=== PATIENT | female | born 1975 | race Caucasian/White ===

== ENCOUNTER 2017-10-11 23:14 | Inpatient (IN) | payer SELFPAY ==
[2017-10-12 00:36] LABS: HCG,QUALITATIVE URINE NEGATIVE (NEGATIVE); SQUAMOUS EPITHIAL 4 /hpf (0-5); URINE BACTERIA OCC (<OCC); URINE BILIRUBIN NEGATIVE (NEGATIVE); URINE CLARITY Hazy (Clear); URINE COLOR Yellow (YELLOW); URINE GLUCOSE (UA) NORMAL (Normal); URINE LEUKOCYTE ESTERASE TRACE Leu/uL (Negative); URINE PROTEIN NEGATIVE (NEGATIVE); URINE UROBILINOGEN NORMAL mg/dL (0.2-1.0)
[2017-10-12 00:38] LABS: URINE BLOOD 1+ (NEGATIVE)
[2017-10-12] MEDS ORDERED: Sodium Chloride 0.9% 1,000 ML IV ONE (00:43)
--- NOTE | 2017-10-12 00:43 | C.PDOC ---
History Of Present Illness 42 year old female presents to the ED c/o RLQ abdominal pain associated with some nausea. Patient describes her pain as shapr, stabbing 5/10 pain. Patient denies fever, chills, vomit, diarrhea. Time Seen by Provider: 10/12/17 00:41 Chief Complaint (Nursing): Abdominal Pain History Per: Patient History/Exam Limitations: no limitations Onset/Duration Of Symptoms: Hrs Current Symptoms Are (Timing): Still Present Severity: Severe Pain Scale Rating Of: 6 Location Of Pain/Discomfort: RUQ Radiation Of Pain To:: None Quality Of Discomfort: Sharp, Stabbing Associated Symptoms: Nausea. denies: Vomiting, Diarrhea, Loss Of Appetite, Urinary Symptoms Exacerbating Factors: None Alleviating Factors: None Last Bowel Movement: Today Recent travel outside of the [place]: No Additional History Per: Patient Abnormal Vaginal Bleeding: No Past Medical History Reviewed: Historical Data, Nursing Documentation, Vital Signs Vital Signs: Last Vital Signs Temp 98.3 F 10/12/17 01:21 Pulse 67 10/12/17 01:21 Resp 12 10/12/17 01:21 BP 115/74 10/12/17 01:21 Pulse Ox 100 10/12/17 01:35 - Medical History PMH: No Chronic Diseases Surgical History: No Surg Hx Family History: States: Unknown Family Hx - Social History Hx Tobacco Use: No Hx Alcohol Use: No Hx Substance Use: No - Immunization History Hx Tetanus Toxoid Vaccination: No Hx Influenza Vaccination: Yes Hx Pneumococcal Vaccination: No Review Of Systems Constitutional: Negative for: Fever, Chills ENT: Negative for: Throat Pain Cardiovascular: Negative for: Chest Pain, Palpitations Respiratory: Negative for: Cough, Shortness of Breath Gastrointestinal: Positive for: Nausea, Abdominal Pain. Negative for: Vomiting , Diarrhea Genitourinary: Negative for: Dysuria Musculoskeletal: Negative for: Back Pain Skin: Negative for: Rash Neurological: Negative for: Weakness, Numbness Psych: Positive for: Anxiety Physical Exam - Physical Exam Appears: Non-toxic, In Acute Distress Skin: Warm, Dry Head: Normacephalic Eye(s): bilateral: Normal Inspection Oral Mucosa: Moist Neck: Supple Chest: Symmetrical Cardiovascular: Rhythm Regular Respiratory: No Rales, No Rhonchi, No Wheezing Gastrointestinal/Abdominal: Soft, Tenderness (RLQ), No Distention, Guarding ( voluntary), Rebound (mild) Back: Normal Inspection Extremity: No Tenderness, No Swelling Extremity: Bilateral: Atraumatic, Normal Color And Temperature, Normal ROM Neurological/Psych: Oriented x3, Normal Speech Gait: Steady ED Course And Treatment - Laboratory Results Result Diagrams: 10/12/17 01:02 10/12/17 01:02 O2 Sat by Pulse Oximetry: 100 (ON RA) Pulse Ox Interpretation: Normal Progress Note: Plan: - CT abd/pelvis. - Labs. - Morphine 2 mg IVP. - IV fluids. - Zosyn IVPB. - Toradol 30 mg IVP. - Zofran 4 mg IVP. - UA Disposition Discussed With Dr.: Reuben Rose Comment: accepted the pt on her service and took over the care at 4:34 AM Doctor Will See Patient In The: ED Counseled Patient/Family Regarding: Studies Performed, Diagnosis - Disposition Disposition: HOSPITALIZED Disposition Time: 00:43 Condition: FAIR Forms: [facility] (Thai) - POA Present On Arrival: Poor Glycemic Control - Clinical Impression Clinical Impression: Abdominal pain, Acute appendicitis - Scribe Statement The provider has reviewed the documentation as recorded by the Scribe Aleks Melo All medical record entries made by the Scribe were at my direction and personally dictated by me. I have reviewed the chart and agree that the record accurately reflects my personal performance of the history, physical exam, medical decision making, and the department course for this patient. I have also personally directed, reviewed, and agree with the discharge instructions and disposition. Decision To Admit - Pt Status Changed To: Hospital Disposition Of: Inpatient - Admit Certification Admit to Inpatient:: After my assessment, the patient will require hospitalization for at least two midnights. This is because of the severity of symptoms shown, intensity of services needed, and/or the medical risk in this patient being treated as an outpatient. - InPatient: Physician Admission Certification:: After my assessment, the patient will require hospitalization for at least two midnights. This is because of the severity of symptoms shown, intensity of services needed, and/or the medical risk in this patient being treated as an outpatient. - . Bed Request Type: Regular Admitting Physician: Reuben Rose Patient Diagnosis: Abdominal pain, Acute appendicitis
[2017-10-12] MEDS ORDERED: Sodium Chloride 0.9% 1,000 ML ONE (01:00)
[2017-10-12 01:05] LABS: BASO # 0.1 K/uL (0.0-0.2); BASO % 0.7 % (0.0-2.0); EOS % 0.3 % (0.0-4.0); HEMOGLOBIN 13.7 g/dL (11.0-16.0); LYMPH # 1.4 K/uL (1.0-4.3); LYMPH % 9.5 % (20.0-40.0); MEAN CELL VOLUME 89.4 fL (81.0-99.0); MEAN CORPUSCULAR HEMOGLOBIN 30.6 pg (27.0-31.0); MEAN CORPUSCULAR HGB CONC 34.2 g/dL (33.0-37.0); MEAN PLATELET VOLUME 8.4 fL (7.2-11.7); MONO # 0.6 K/uL (0.0-0.8); MONO % 3.8 % (0.0-10.0); NEUT # 12.6 K/uL (1.8-7.0); NEUT % 85.7 % (50.0-75.0); PLATELET COUNT 265 K/uL (130-400); RED CELL DISTRIBUTION WIDTH 12.6 % (11.5-14.5); WHITE BLOOD COUNT 14.7 K/uL (4.8-10.8)
[2017-10-12] MEDS ORDERED: Iodixanol 320 MG/ML 100 ML BOTTLE IV ONE (01:09)
[2017-10-12 01:11] LABS: PROTHROMBIN TIME 11.3 SECONDS (9.7-12.2)
[2017-10-12] MEDS ORDERED: Piperacillin/Tazobact 3.375 gm 100 ML IVPB STA (01:13)
[2017-10-12 01:16] LABS: ALB/GLOB RATIO 1.4 (1.0-2.1); ALBUMIN 4.8 g/dL (3.5-5.0); ALT/SGPT 47 U/L (9-52); AST/SGOT 25 U/L (14-36); BLOOD UREA NITROGEN 12 mg/dL (7-17); CALCIUM 9.4 mg/dl (8.6-10.4); GFR AFRICAN-AMERICAN > 60; GFR NON-AFRICAN AMERICAN > 60; LIPASE 86 U/L (23-300)
[2017-10-12 01:58] LABS: LYMPHOCYTE 10 % (20-40); MONOCYTE 3 % (0-10); NEUTROPHIL 87 % (50-75); PLATELET ESTIMATE NORMAL (NORMAL); TOTAL CELLS COUNTED 100
[2017-10-12] MEDS ORDERED: Piperacillin/Tazobact 3.375 gm 100 ML IVPB ONE (02:47)
[2017-10-12] MEDS ORDERED: Morphine 4 MG/ML VIAL IVP PRN (04:56)
--- NOTE | 2017-10-12 05:07 | CP.PCM.HP ---
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 Patient states pain began yesterday around 4PM. She describes pain first began along epigastrium and periumbilical region. Patient states as time went on the pain began to localize to the right lower quadrant. She denies headache/dizziness, chest pain, SOB, nausea/vomiting/diarrhea, dysuria. Patient is currently on her menstrual period. PMH: as stated above PSurgHx: denies All: NKDA Fam Hx: non-contributory Review of Systems - Review of Systems Review of Systems: 12pt ROS reviewed, unremarkable, except as stated in HPI Past Patient History - Past Social History Smoking Status: Never Smoked - PSYCHIATRIC Hx Substance Use: No Meds Allergies/Adverse Reactions: Allergies Allergy/AdvReac Type Severity Reaction Status Date / Time No Known Allergies Allergy Unverified 05/16/13 23:34 Physical Exam - Constitutional Appears: No Acute Distress - Head Exam Head Exam: NORMOCEPHALIC - Eye Exam Eye Exam: EOMI, Normal appearance - ENT Exam ENT Exam: Mucous Membranes Moist - Respiratory Exam Respiratory Exam: NORMAL BREATHING PATTERN - Cardiovascular Exam Cardiovascular Exam: +S1, +S2 - GI/Abdominal Exam GI & Abdominal Exam: Rebound, Soft, Tenderness. absent: Distended, Firm, Guarding, Rigid Additional comments: +McBurney's +Obturator test +RLQ tenderness - Neurological Exam Neurological exam: Alert, Oriented x3 - Psychiatric Exam Psychiatric exam: Normal Mood - Skin Skin Exam: Dry, Intact, Warm Results - Vital Signs Recent Vital Signs: Last Vital Signs Temp 98.6 F 10/12/17 05:02 Pulse 73 10/12/17 05:02 Resp 18 10/12/17 05:02 BP 97/62 L 10/12/17 05:02 Pulse Ox 99 10/12/17 05:02 - Labs Result Diagrams: 10/12/17 01:02 10/12/17 01:02 Labs: Laboratory Results - last 24 hr 10/12/17 10/12/17 10/12/17 00:18 01:02 01:02 WBC 14.7 H RBC 4.50 Hgb 13.7 Hct 40.2 MCV 89.4 MCH 30.6 MCHC 34.2 RDW 12.6 Plt Count 265 MPV 8.4 Neut % (Auto) 85.7 H Lymph % (Auto) 9.5 L [place] % (Auto) 3.8 Eos % (Auto) 0.3 Baso % (Auto) 0.7 Neut # (Auto) 12.6 H Lymph # (Auto) 1.4 [place] # (Auto) 0.6 Eos # (Auto) 0.0 Baso # (Auto) 0.1 Neutrophils % (Manual) 87 H Lymphocytes % (Manual) 10 L Monocytes % (Manual) 3 Platelet Estimate Normal PT 11.3 INR 1.0 APTT 33 Sodium Potassium Chloride Carbon Dioxide Anion Gap BUN Creatinine Est GFR ( Amer) Est GFR (Non-Af Amer) Random Glucose Calcium Total Bilirubin AST ALT Alkaline Phosphatase Total Protein Albumin Globulin Albumin/Globulin Ratio Lipase Urine Color Yellow Urine Clarity Hazy Urine pH 6.0 Ur Specific [place] 1.023 Urine Protein Negative Urine Glucose (UA) Normal Urine Ketones Negative Urine Blood 1+ H Urine Nitrate Negative Urine Bilirubin Negative Urine Urobilinogen Normal Ur Leukocyte Esterase Trace Urine WBC (Auto) 8 H Urine RBC (Auto) 7 H Ur Squamous Epith Cells 4 Urine Bacteria Occ H Urine HCG, Qual Negative 10/12/17 01:02 WBC RBC Hgb Hct MCV MCH MCHC RDW Plt Count MPV Neut % (Auto) Lymph % (Auto) [place] % (Auto) Eos % (Auto) Baso % (Auto) Neut # (Auto) Lymph # (Auto) [place] # (Auto) Eos # (Auto) Baso # (Auto) Neutrophils % (Manual) Lymphocytes % (Manual) Monocytes % (Manual) Platelet Estimate PT INR APTT Sodium 142 Potassium 4.4 Chloride 105 Carbon Dioxide 26 Anion Gap 15 BUN 12 Creatinine 0.7 Est GFR ( Amer) > 60 Est GFR (Non-Af Amer) > 60 Random Glucose 118 H Calcium 9.4 Total Bilirubin 0.4 AST 25 ALT 47 Alkaline Phosphatase 63 Total Protein 8.3 Albumin 4.8 Globulin 3.5 Albumin/Globulin Ratio 1.4 Lipase 86 Urine Color Urine Clarity Urine pH Ur Specific [place] Urine Protein Urine Glucose (UA) Urine Ketones Urine Blood Urine Nitrate Urine Bilirubin Urine Urobilinogen Ur Leukocyte Esterase Urine WBC (Auto) Urine RBC (Auto) Ur Squamous Epith Cells Urine Bacteria Urine HCG, Qual - Imaging and Cardiology CT scan - abdomen Status: Image reviewed by me Assessment & Plan - Assessment and Plan (Free Text) Assessment: 42F with acute appendicitis Plan: For OR in AM for laparoscopic appendectomy possible open Consent in chart NPO IVF ABx Analgesics prn Anti-emetics prn SCDs Further recs per Dr. Milton Magallanes PGY3
[2017-10-12] MEDS ORDERED: Lactated Ringer's 1,000 ML ONE (05:17)
[2017-10-12] MEDS: Lactated Ringer's 1,000 ML IV SCH ×2 (05:21→14:50)
[2017-10-12] MEDS: Piperacillin/Tazobact 3.375 GM in Sodium Chloride 100 ML IVPB SCH ×2 (06:44→13:26)
--- NOTE | 2017-10-12 07:25 | CT ---
Date of service: 10/12/2017 PROCEDURE: CT Abdomen and Pelvis without intravenous contrast HISTORY: Right lower quadrant abdominal pain COMPARISON: None. TECHNIQUE: Multiple contiguous axial images were performed through the abdomen and pelvis with the use of intravenous contrast. Subsequently, sagittal and coronal reformatted images were obtained. Radiation dose: Total exam DLP = 467 mGy-cm. This CT exam was performed using one or more of the following dose reduction techniques: Automated exposure control, adjustment of the mA and/or kV according to patient size, and/or use of iterative reconstruction technique. FINDINGS: LOWER THORAX: Atelectasis and scarring at the lung bases. LIVER: Few scattered sub centimeter hypodensities, too small to adequately characterize. GALLBLADDER AND BILE DUCTS: Unremarkable. PANCREAS: Unremarkable. No gross lesion or ductal dilatation. SPLEEN: Unremarkable. Splenule. ADRENALS: Unremarkable. No mass. KIDNEYS AND URETERS: Few scattered sub centimeter hypodensities in both kidneys, too small to adequately characterize. VASCULATURE: Unremarkable. No aortic aneurysm. BOWEL: Segmental areas of probable underdistention of the left colon. APPENDIX: Enlarged appendix measuring up to 1.3 centimeters in diameter. Appendicolith. Minimal stranding about the appendix. PERITONEUM: Trace free fluid in the pelvis. LYMPH NODES: Unremarkable. No enlarged lymph nodes. BLADDER: Unremarkable. REPRODUCTIVE: Heterogeneous uterus, endometrium, and bilateral adnexa. BONES: Minimal curvature of the spine. OTHER FINDINGS: Mild motion artifact. Retro aortic left renal vein. IMPRESSION: Findings concerning for acute appendicitis. Clinical correlation. Indeterminate low-attenuation subcentimeter hepatic and renal lesions. Continued interval followup may be helpful if clinically indicated. Additional findings as above. These findings were preliminarily reported at 6:29 a.m. on 10/12/[address] Marcus Bolton from [facility].
[2017-10-12] MEDS ORDERED: Propofol 10 mg/ml Inj (20 ML) ONE ×2 (09:15→10:09)
[2017-10-12] MEDS ORDERED: Succinylcholine Chloride 20 mg/ml Syr (5 ml) IV ONE (09:15)
[2017-10-12] MEDS ORDERED: Midazolam 2 MG/2 ML VIAL ONE (09:15)
[2017-10-12] MEDS ORDERED: Neostigmine Methylsulfate 3mg/3ml Syringe IV ONE (09:34)
[2017-10-12] MEDS ORDERED: Rocuronium 10 mg/ml (5 ml) ONE (09:34)
--- NOTE | 2017-10-12 10:35 | PCM.SURG1 ---
Surgeon's Initial Post Op Note - Surgeon's Notes Surgeon: Dr. Rose Comic Writer: Sari Angel, PGY2 Type of Anesthesia: General Endo Pre-Operative Diagnosis: acute appendicitis Operative Findings: inflammed appendix Post-Operative Diagnosis: Acute appendicitis Operation Performed: laparoscopic appendectomy Specimen/Specimens Removed: appendix Estimated Blood Loss: EBL {In ML}: 10 Blood Products Given: N/A Drains Used: No Drains Post-Op Condition: Fair Date of Surgery/Procedure: 10/12/17 Time of Surgery/Procedure: 09:00
[2017-10-12] MEDS: HYDROmorphone 0.5 mg/0.5 ml ISec IVP PRN ×2 (10:40→10:50)
[2017-10-12 16:29] VITALS: RESP 20; O2SAT 97
[2017-10-12] MEDS: oxyCODONE 5 mg Immediate Release Tab PO PRN (18:46)
--- NOTE | 2017-10-12 20:59 | OP ---
Copied To: Reuben Rose MD Attending MD: Reuben Rose MD PROCEDURE DATE: 10/12/2017 SURGEON: Reuben Rose MD ROTARY BAR OPERATOR: Sari Angel DO ANESTHESIA: General. ANESTHESIOLOGIST: Jaida Jacobo MD PREOPERATIVE DIAGNOSIS: Acute appendicitis. POSTOPERATIVE DIAGNOSIS: Acute appendicitis. PROCEDURE: Laparoscopic appendectomy. DESCRIPTION OF OPERATION: With the patient in the supine position under adequate general anesthesia, the abdomen was prepped and draped in the usual sterile manner. A Veress needle puncture was performed at the umbilicus with insufflation to 15 cm water pressure of CO2, and a 10-mm laparoscopic trocar was inserted via an infraumbilical incision. Under direct vision, 5 and 12 mm trocars were inserted in the left lower quadrant. The appendix was visualized. It was noted to be dilated and acutely inflamed, and the appendix was gently freed from the pelvic sidewall and completely delivered up into view. The mesoappendix as well was markedly thickened and edematous. The mesoappendix was dissected and divided with two passes of the Endo SHANIA stapler. The area of the appendiceal artery was reinforced with hemoclips. The appendix itself was divided close to the cecum using the Endo SHANIA stapler. The stump was examined for hemostasis. The appendix was placed in a specimen retrieval bag and removed via the 12-mm port site. The right gutter iliac fossa and pelvis were suctioned. The pneumoperitoneum was released, and the trocars were removed. The 12 mm and umbilical port sites were closed with fascial sutures of 0 Vicryl. All incisions were closed with 4-0 Monocryl subcuticular sutures and Steri-Strips. Dry sterile dressings were applied. The patient tolerated the procedure well and transferred to the recovery room in stable condition. Estimated blood loss for the procedure was 10 mL. Reuben Rose MD
[2017-10-13 08:04] VITALS: BP 95/57; PULSE 74; TEMP 97.9
[2017-10-13 08:44] LABS: BASO % 0.2 % (0.0-2.0); EOS % 0.1 % (0.0-4.0); HEMOGLOBIN 11.7 g/dL (11.0-16.0); LYMPH # 1.3 K/uL (1.0-4.3); LYMPH % 7.9 % (20.0-40.0); MEAN CELL VOLUME 90.2 fL (81.0-99.0); MEAN CORPUSCULAR HGB CONC 34.3 g/dL (33.0-37.0); MEAN PLATELET VOLUME 9.1 fL (7.2-11.7); MONO # 0.7 K/uL (0.0-0.8); MONO % 4.6 % (0.0-10.0); NEUT # 14.2 K/uL (1.8-7.0); NEUT % 87.2 % (50.0-75.0); PLATELET COUNT 254 K/uL (130-400); RBC 3.79 Mil/uL (3.80-5.20); RED CELL DISTRIBUTION WIDTH 13.2 % (11.5-14.5); WHITE BLOOD COUNT 16.3 K/uL (4.8-10.8)
[2017-10-13 08:53] LABS: BLOOD UREA NITROGEN 14 mg/dL (7-17); CALCIUM 9.1 mg/dl (8.6-10.4); GFR AFRICAN-AMERICAN > 60; GFR NON-AFRICAN AMERICAN > 60
--- NOTE | 2017-10-13 09:28 | CP.PCM.DIS ---
Provider - Provider Date of Admission: 10/12/17 04:33 Attending physician: Reuben Rose MD Time Spent in preparation of Discharge (in minutes): 35 Diagnosis - Discharge Diagnosis (1) Acute appendicitis Status: Acute Priority: High Hospital Course - Lab Results Lab Results: Most Recent Lab Values WBC 16.3 K/uL (4.8-10.8) H 10/13/17 08:21 RBC 3.79 Mil/uL (3.80-5.20) L 10/13/17 08:21 Hgb 11.7 g/dL (11.0-16.0) D 10/13/17 08:21 Hct 34.2 % (34.0-47.0) 10/13/17 08:21 MCV 90.2 fL (81.0-99.0) 10/13/17 08:21 MCH 31.0 pg (27.0-31.0) 10/13/17 08:21 MCHC 34.3 g/dL (33.0-37.0) 10/13/17 08:21 RDW 13.2 % (11.5-14.5) 10/13/17 08:21 Plt Count 254 K/uL (130-400) 10/13/17 08:21 MPV 9.1 fL (7.2-11.7) 10/13/17 08:21 Neut % (Auto) 87.2 % (50.0-75.0) H 10/13/17 08:21 Lymph % (Auto) 7.9 % (20.0-40.0) L 10/13/17 08:21 [place] % (Auto) 4.6 % (0.0-10.0) 10/13/17 08:21 Eos % (Auto) 0.1 % (0.0-4.0) 10/13/17 08:21 Baso % (Auto) 0.2 % (0.0-2.0) 10/13/17 08:21 Neut # (Auto) 14.2 K/uL (1.8-7.0) H 10/13/17 08:21 Lymph # (Auto) 1.3 K/uL (1.0-4.3) 10/13/17 08:21 [place] # (Auto) 0.7 K/uL (0.0-0.8) 10/13/17 08:21 Eos # (Auto) 0.0 K/uL (0.0-0.7) 10/13/17 08:21 Baso # (Auto) 0.0 K/uL (0.0-0.2) 10/13/17 08:21 Neutrophils % (Manual) 87 % (50-75) H 10/12/17 01:02 Lymphocytes % (Manual) 10 % (20-40) L 10/12/17 01:02 Monocytes % (Manual) 3 % (0-10) 10/12/17 01:02 Platelet Estimate Normal (NORMAL) 10/12/17 01:02 PT 11.3 SECONDS (9.7-12.2) 10/12/17 01:02 INR 1.0 10/12/17 01:02 APTT 33 SECONDS (21-34) 10/12/17 01:02 Sodium 141 mmol/L (132-148) 10/13/17 08:21 Potassium 4.2 mmol/L (3.6-5.2) 10/13/17 08:21 Chloride 107 mmol/L (98-107) 10/13/17 08:21 Carbon Dioxide 27 mmol/L (22-30) 10/13/17 08:21 Anion Gap 12 (10-20) 10/13/17 08:21 BUN 14 mg/dL (7-17) 10/13/17 08:21 Creatinine 0.7 mg/dL (0.7-1.2) 10/13/17 08:21 Est GFR ( Amer) > 60 10/13/17 08:21 Est GFR (Non-Af Amer) > 60 10/13/17 08:21 Random Glucose 110 mg/dL (65-105) H 10/13/17 08:21 Calcium 9.1 mg/dl (8.6-10.4) 10/13/17 08:21 Total Bilirubin 0.4 mg/dL (0.2-1.3) 10/12/17 01:02 AST 25 U/L (14-36) 10/12/17 01:02 ALT 47 U/L (9-52) 10/12/17 01:02 Alkaline Phosphatase 63 U/L (38-126) 10/12/17 01:02 Total Protein 8.3 g/dL (6.3-8.3) 10/12/17 01:02 Albumin 4.8 g/dL (3.5-5.0) 10/12/17 01:02 Globulin 3.5 gm/dL (2.2-3.9) 10/12/17 01:02 Albumin/Globulin Ratio 1.4 (1.0-2.1) 10/12/17 01:02 Lipase 86 U/L (23-300) 10/12/17 01:02 Urine Color Yellow (YELLOW) 10/12/17 00:18 Urine Clarity Hazy (Clear) 10/12/17 00:18 Urine pH 6.0 (5.0-8.0) 10/12/17 00:18 Ur Specific [place] 1.023 (1.003-1.030) 10/12/17 00:18 Urine Protein Negative mg/dL (NEGATIVE) 10/12/17 00:18 Urine Glucose (UA) Normal mg/dL (Normal) 10/12/17 00:18 Urine Ketones Negative mg/dL (NEGATIVE) 10/12/17 00:18 Urine Blood 1+ (NEGATIVE) H 10/12/17 00:18 Urine Nitrate Negative (NEGATIVE) 10/12/17 00:18 Urine Bilirubin Negative (NEGATIVE) 10/12/17 00:18 Urine Urobilinogen Normal mg/dL (0.2-1.0) 10/12/17 00:18 Ur Leukocyte Esterase Trace Oly/uL (Negative) 10/12/17 00:18 Urine WBC (Auto) 8 /hpf (0-5) H 10/12/17 00:18 Urine RBC (Auto) 7 /hpf (0-3) H 10/12/17 00:18 Ur Squamous Epith Cells 4 /hpf (0-5) 10/12/17 00:18 Urine Bacteria Occ (<OCC) H 10/12/17 00:18 Urine HCG, Qual Negative (NEGATIVE) 10/12/17 00:18 - Hospital Course Hospital Course: Pt is a 42F with sudden onsent epigastric pain that radiated to her RLQ and had an elevated WBC. Patient was found to have concern for appendicitis on CT and was started on zosyn and was taken for laparoscopic appendectomy on 10/12/17 without complication. Patent recovered well, tolerating diet, urinating, ambulating, and tolerating pain on PO pain medication. Patient was discharged to home with PRN pain medication and instructions to follow up with Dr. Rose in her office in 2 weeks For full hospital course, refer to chart Discharge Exam - Head Exam Head Exam: ATRAUMATIC, NORMOCEPHALIC - Eye Exam Eye Exam: absent: Conjunctival injection, Scleral icterus - ENT Exam ENT Exam: Mucous Membranes Moist, Normal Oropharynx - Respiratory Exam Respiratory Exam: NORMAL BREATHING PATTERN, UNREMARKABLE. absent: Accessory Muscle Use - Cardiovascular Exam Cardiovascular Exam: RRR - GI/Abdominal Exam GI & Abdominal Exam: Soft, Tenderness (RLQ and petros-incisional). absent: Distended Additional comments: dressings over incision c/d/i except for minimal sanguinous saturation in the suprapubic dressing - Extremities Exam Extremities exam: normal inspection, pedal pulses present - Neurological Exam Neurological exam: Alert, Oriented x3 - Psychiatric Exam Psychiatric exam: Normal Affect, Normal Mood - Skin Skin Exam: Dry, Normal Color, Warm Discharge Plan - Discharge Medications Prescriptions: oxyCODONE/Acetaminophen [Percocet 5/325 mg Tab] 1 ea PO Q4H PRN 2 Days #12 tab PRN Reason: Pain, Moderate (4-7) - Follow Up Plan Condition: FAIR Disposition: HOME/ ROUTINE Instructions: Appendicitis in Adults, Appendicitis, Adult (DC), Appendectomy, Laparoscopic Surgery (DC) Additional Instructions: Call Dr. Rose's office and schedule an appointment in 2 weeks Take pain medication as needed or tylenol and advil for pain You may eat a regular diet Do not lift more than 15 pounds for 4 weeks You may shower tomorrow but do not take a bath or swim Your bandaids may come off tomorrow but the white tape beneath stay on until they fall off on their own Return to the ER or call Dr. Rose's office for fever >100.4 not treated with tylenol, severe pain, nausea or vomiting, or drainage from incisions Referrals: Reuben Rose MD [Staff Provider] -
[2017-10-13] MEDS: oxyCODONE 5 mg Immediate Release Tab PO PRN (09:55)
[2017-10-13] MEDS ORDERED: Pneumococcal 23-Valent Vaccine IM ONE (10:00)
[2017-10-13 10:05] LABS: BANDS 1 % (0-2); LYMPHOCYTE 7 % (20-40); MONOCYTE 3 % (0-10); NEUTROPHIL 89 % (50-75); PLATELET ESTIMATE NORMAL (NORMAL); TOTAL CELLS COUNTED 100
[2017-10-13 10:06] LABS: ANISOCYTOSIS SLIGHT; HYPOCHROMIC SLIGHT; POLYCHROMIC SLIGHT
== END 2017-10-13 11:37 | disposition home or self-care (01) | DRG 883 ==
LOC: C.ER 23:14 → C.9E 10-12 04:33 → C.6T 10-12 05:15 → C.9E 10-12 05:23 → C.6T 10-12 05:24
PROVIDERS: ADMIT Specialist; ATTEND Specialist
PROC: 0DTJ4ZZ Resection of Appendix, Percutaneous Endoscopic Approach (ICD-10-PCS; principal; 2017-10-12 08:30)
DX: K35.80 Unspecified acute appendicitis (principal)